=== PATIENT | male | born 1960 | race Caucasian/White ===

== ENCOUNTER 2016-12-05 14:01 | Day surgery (SDC) | payer OTHER ==
[~2016-12-05] VITALS: Ht 175.3 cm; Wt 106.8 kg
[~2016-12-05 14:01] MED LIST: AMBIEN CR12.5 MG PO; LEVOTHYROXINE100 MCG PO; METFORMIN HCL500 MG PO; VITAMIN D250000 UNIT PO
[2016-12-05 14:51] VITALS: BP 114/84
[2016-12-05 16:01] LABS: ANION GAP 10 MEQ/L (2-14); CHLORIDE 104 MEQ/L (99-109); POTASSIUM 4.4 MEQ/L (3.7-5.4); SAMPLE HEMOLYSIS CHECK 0; SAMPLE ICTERIC CHECK 0; SAMPLE LIPEMIA CHECK 0; SODIUM 141 MEQ/L (136-147)
[2016-12-05 16:06] LABS: GFR ESTIMATE (CALCULATED) > 59 mL/min/; GLUCOSE 123 mg/dL (70-99); UREA NITROGEN (BUN) 17 mg/dL (9-23)
[2016-12-05] MEDS ORDERED: NORCO 5/3251 TABLET PO (19:07)
[2016-12-05 20:10] VITALS: BP 129/91
[2016-12-05 20:35] LABS: POINT-OF-CARE METER ID UU14174212
[2016-12-05 21:09] VITALS: BP 125/89
[2016-12-05 21:41] VITALS: BP 131/90
== END 2016-12-05 21:44 | disposition home or self-care (01) ==
LOC: SDC 14:01
PROVIDERS: Surgery
PROC: 0WQF0ZZ Repair Abdominal Wall, Open Approach (ICD-10-PCS; principal; 2016-12-05)
DX: K42.9 Umbilical hernia without obstruction or gangrene (principal); K43.9 Ventral hernia without obstruction or gangrene; E11.9 Type 2 diabetes mellitus without complications; E03.9 Hypothyroidism, unspecified; F17.200 Nicotine dependence, unspecified, uncomplicated
CPT/HCPCS: 80048; 82948; 93005; J0690; J1170; J2250; J3010; S0020